=== PATIENT | male | born 1950 | race Caucasian/White ===

== ENCOUNTER 2020-08-06 20:22 | Emergency (ER) | payer MEDICARE ==
[~2020-08-06] VITALS: Ht 162.6 cm; Wt 74.8 kg
[2020-08-06 20:35] VITALS: Ht 162.6 cm; Wt 74.8 kg
[2020-08-06 23:23] LABS: BASOPHIL % 0.4 % (0.2-1.5); PLATELET COUNT 208 x10^3mcL (152-348); RED CELL DISTRIBUTION WIDTH 14.2 % (12.1-16.2)
[2020-08-06 23:59] VITALS: BP 155/70
== END 2020-08-06 23:59 | disposition home or self-care (01) ==
LOC: ED 20:22
PROVIDERS: Emergency Medicine
DX: R04.0 Epistaxis (principal); I10 Essential (primary) hypertension; Z88.6 Allergy status to analgesic agent; Z88.5 Allergy status to narcotic agent